=== PATIENT | male | born 1990 | race Caucasian/White ===

== ENCOUNTER → 2021-07-02 13:29 | Outpatient (CLI) | payer OTHER, SELFPAY ==
[2021-07-02 15:25] LABS: Absolute Lymphocyte Count 1.94 X10^3/uL (0.83-4.51); Absolute Neutrophil Count 4.1 X10^3/uL (2.0-7.7); Basophil# 0.06 X10^3/uL; Basophil% 0.9 % (0-1); Eosinophil# 0.38 X10^3/uL; Eosinophils% 5.4 % (0-5); Hematocrit 41.9 % (40-54); Lymphocyte # 1.94 X10^3/ul (0.83-4.51); Lymphocyte % 27.7 % (19-41); Mean Corp Hgb Conc 33.4 g/dL (32-36); Mean Corpuscular Hgb 33.3 pg (27.0-32.0); Mean Corpuscular Volume 99.8 fL (80-94); Mean Platelet Vol. 11.9 fl (6.2-12.0); Monocyte% 7.1 % (0-10); NRBC Flagged by Analyzer 0 % (0-5); Neutrophil # 4.11 X10^3/uL (2.7-7.7); Neutrophil % 58.6 % (47-70); Platelet Count 186 K/mm3 (150-450); RBC Distribution Width CV 12.4 % (11.6-14.6); RBC Distribution Width SD 45.6 fl (35.1-43.9)
[2021-07-02 15:57] LABS: Vitamin B12 581 pg/mL (211-911)
[2021-07-02 16:12] LABS: AST(SGOT) 22 U/L (15-37); Alanine Aminotransfer ALT/SGPT 45 U/L (16-61); Albumin, Serum 3.6 g/dL (3.2-5.0); Alkaline Phosphatase 62 U/L (45-117); Anion Gap 5 (5-15); BUN 11 mg/dL (7-18); BUN/Creat Ratio 13.9 RATIO (10-20); Calcium,Total 8.8 mg/dL (8.5-10.1); Chloride 108 mmol/L (98-107); Cholesterol 115 mg/dL (200); Creatinine, Serum 0.79 mg/dL (0.70-1.30); EST Glomerular Filtration Rate 120 mL/min (>60); Est Glom Filt Rate - Afr Amer 145 mL/min (>60); Globulin 3.5 g/dL (2.2-4.2); Glucose 106 mg/dL (74-106); High Density Lipoprotein 28 mg/dL; Potassium 3.7 mmol/L (3.5-5.1); Protein, Total 7.1 g/dL (6.4-8.2); Sodium Level 139 mmol/L (136-145); T4 Free Direct 1.34 ng/dL (0.76-1.46); Thyroid Stim Hormone (TSH) 0.77 uIU/mL (0.358-3.74); Triglycerides 130 mg/dL; Very Low Density Lipoprotein 26 mg/dL (5-40)
== END ==
PROVIDERS: PCP Family Medicine; Visit Provider Internal Medicine
DX: F41.9 Anxiety disorder, unspecified (principal); F32.9 Major depressive disorder, single episode, unspecified; R03.0 Elevated blood-pressure reading, without diagnosis of hypertension
CPT/HCPCS: 36415; 80053; 80061; 82607; 84439; 84443; 85025

== ENCOUNTER 2023-03-04 17:17 | Emergency (ER) | payer OTHER, SELFPAY ==
[2023-03-04 17:18] VITALS: BP 161/94; PULSE 83; RESP 14; TEMP 36.1; O2SAT 97
[2023-03-04 17:24] VITALS: BMI 57.7
--- NOTE | 2023-03-04 17:48 | EDS_ITS ---
HPI History of Present Illness Chief Complaint: Dental Narrative Narrative: Patient is here several days of right upper and lower jaw pain has been constant, severe without alleviating factors. Denies history of diabetes. Denies neck stiffness, drooling, stridor. [facility] Medical History (Updated 03/04/23 @ 17:[address] Turner Kent, DO) Anxiety and depression Elevated blood pressure reading Morbid obesity Home Medications aripiprazole 5 mg tablet (Abilify) 5 mg PO QHS #30 tabs 07/02/21 [Rx Last Taken Unknown] vortioxetine 10 mg tablet (Trintellix) 10 mg PO DAILY #30 tabs 07/02/21 [Rx Last Taken Unknown] amoxicillin 875 mg-potassium clavulanate 125 mg tablet 1 tab PO TID #14 tabs 03/04/23 [Rx Last Taken Unknown] Allergy/AdvReac Type Severity Reaction Status Date / Time No Known Allergies Allergy Verified 03/04/23 17:18 Family History (Updated 07/02/21 @ 13:02 by Ruth Lea) Grandmother Diabetes Other Asthma Breast cancer Heart disease Hypertension Myocardial infarction Social History (Updated 07/02/21 @ 13:02 by Ruth Lea) Smoking Status: Current every day smoker tobacco type: cigarettes alcohol intake: never substance use type: marijuana ROS ROS ED ROS Narrative Constitutional: Denies fever HEENT: Denies sore throat, endorses dental pain, denies submandibular edema, denies drooling Neck: Denies neck pain Cardiovascular: Denies chest pain, syncope Respiratory: Denies shortness of breath GI: Denies nausea vomiting or abdominal pain : Denies changes in urinary habits Musculoskeletal: Denies muscle or joint pain Neurologic: Denies numbness weakness or loss of sensation Skin denies rash EXAM Physical Exam Narrative Exam Narrative: Nursing triage notes reviewed, Vital signs reviewed Constitutional: please see mdm HENT: MMM, poor dentition, dental caries, swelling and redness noted upper lower molars on the right. Posterior oropharynx is patent. Uvula midline. No submandibular edema. Eyes: Pupils equal round and reactive to light, Extraocular muscles intact Neck: No stridor, no JVD, full neck ROM Lungs: Clear to auscultation, No wheezing or rales. No increased work of breathing, no conversational dyspnea, no accessory muscle use, no nasal flaring. No respiratory distress noted Heart: Regular rate and rhythm, No murmurs, No rubs and No gallops, 2+ distal pulses (radial, femoral, posterior tibial) in all extremities Abdomen: Soft, there is no tenderness, rigidity, rebound or guarding, no obvious peritoneal signs, no palpable pulsatile abdominal masses, no auscultated abdominal bruit : No CVAT Extremities: No edema Neuro: No focal neurological deficits, cranial nerves II through XII intact, 5/5 strength in all extremities. Intact sensation to light touch in all extremities, 2+ reflexes bilateral patella dens. Normal gait. No ataxia. Skin: No rash or lesions noted Const Vital Signs: 03/04/23 17:18 Temperature 97 F L Temperature Source Temporal Pulse Rate 83 Respiratory Rate 14 Blood Pressure 161/94 H Blood Pressure Mean 116 Pulse Ox 97 Oxygen Delivery Method Room Air MDM MDM MDM Narrative Medical decision making narrative: Chief Complaint: Dental pain External records reviewed: No recent advanced imaging of the mouth or jaw MDM: Patient was hemodynamically stable, afebrile, nontoxic-appearing. There is no signs of airway compromise, drooling or stridor on exam. I considered the following differential diagnosis: Ludewig's angina, Lemierre's syndrome, RPA, [employer], dental caries, dental abscess Exam was not consistent with Ludewig's angina, Lemierre's syndrome, RPA, [employer] or dental abscess. The patient symptoms likely secondary dental caries poor dentition and likely dental infection from poor dentition bacterial colonization. Will give antimicrobial prophylaxis and dental follow-up. Factors affecting care: History of depression, marijuana abuse Social determinants of health: History of mental illness History obtained from others: None Shared decision making: I will have a discussion with the patient and or visitors regarding risk/benefits of further testing or admission. They will be made aware of of the risk/benefits inherent in this decision they will be given the opportunity to voice understanding. Consults: None Discharge Plan Triage Chief Complaint: Dental ED Provider: Turner Kent Dx/Rx/DC Orders Clinical Impression: Dental caries Instructions: ED Dental Pain Prescriptions: New amoxicillin-pot clavulanate 875-125 mg tablet 1 tab PO TID Qty: 14 0RF No Action Trintellix 10 mg tablet 10 mg PO DAILY Qty: 30 1RF aripiprazole [Abilify] 5 mg tablet 5 mg PO QHS Qty: 30 1RF Primary Care Provider: Care Physician,No Primary Referrals: Jonah De Dios MD [Med Staff - Active Staff] - Activity Restrictions/Additional Instructions: Thank you for trusting us with your care today! Please take Tylenol (2 pills, 650 mg), ibuprofen (2 pills, 400 mg) every 6 hours as needed for pain and fever control. Please take Augmentin as prescribed. Please continue entire course. Please return to the emergency department if your symptoms change or worsen. Specifically if you develop trouble swallowing, stridor, drooling, neck stiffness, fever or you are unable to take antibiotics by mouth Please follow with your p your local dentist for further outpatient evaluation and management. Disposition Disposition: Home, Self Care Discharge Date/Time: 03/04/23 18:19
[2023-03-04] MEDS: Amox/Clavulanate 875 MG Tablet PO (17:49)
== END 2023-03-04 18:19 | disposition home or self-care (01) ==
LOC: ED 18:04
PROVIDERS: Emergency Provider Emergency Medicine; Visit Provider Emergency Medicine
DX: K02.9 Dental caries, unspecified (principal); K08.89 Other specified disorders of teeth and supporting structures; R03.0 Elevated blood-pressure reading, without diagnosis of hypertension; Z79.899 Other long term (current) drug therapy
CPT/HCPCS: 99283